=== PATIENT | male | born 1990 | race Caucasian/White ===

== ENCOUNTER 2018-05-10 02:57 | Emergency (ER) | payer BC, OTHER ==
[2018-05-10] MEDS ORDERED: KETOROLAC 30 MG/ML 1 ML VIAL IVP STA (03:07)
[2018-05-10] MEDS ORDERED: SODIUM CHLORIDE 0.9% 1,000 ML IV STA (03:07)
[2018-05-10] MEDS ORDERED: ONDANSETRON ODT 8 MG TAB.RAPDIS PO STA (03:07)
[2018-05-10] MEDS ORDERED: MORPHINE SULFATE 4 MG/ML SYRINGE IVP STA ×2 (03:24→04:07)
[2018-05-10 03:53] LABS: Basophils # (A) 0.1 k/uL (0-0.2); Basophils % (A) 1 %; Eosinophils # (A) 0.4 k/uL (0-0.7); Eosinophils % (A) 3 %; HCT 47.4 % (39.0-53.0); HGB 15.4 gm/dL (13.0-17.5); Lymphocytes # (A) 3.3 k/uL (1.0-4.8); Lymphocytes % (A) 31 %; MCH 29.3 pg (25.0-35.0); MCHC 32.6 g/dL (31.0-37.0); MCV 89.9 fL (80.0-100.0); Mean Platelet Volume 6.9; Monocytes # (A) 0.7 k/uL (0-1.0); Monocytes % (A) 6 %; Neutrophils # (A) 5.8 k/uL (1.3-7.7); Neutrophils % (A) 54 %; Platelet Count 306 k/uL (150-450); RBC 5.27 m/uL (4.30-5.90); RDW 12.8 % (11.5-15.5); WBC 10.7 k/uL (3.8-10.6)
[2018-05-10] MEDS ORDERED: ONDANSETRON 4 MG/2 ML VIAL IVP STA (04:08)
[2018-05-10 04:11] LABS: ALT 71 U/L (21-72); AST 36 U/L (17-59); Albumin 4.4 g/dL (3.5-5.0); Alkaline Phosphatase 98 U/L (38-126); Amylase 54 U/L (30-110); Anion Gap 12 mmol/L; Blood Urea Nitrogen 18 mg/dL (9-20); Calcium 9.7 mg/dL (8.4-10.2); Carbon Dioxide 25 mmol/L (22-30); Chloride 106 mmol/L (98-107); Glucose 132 mg/dL (74-99); Lipase 118 U/L (23-300); Potassium 4.3 mmol/L (3.5-5.1); Sodium 143 mmol/L (137-145); Total Bilirubin 0.7 mg/dL (0.2-1.3); Total Protein 7.7 g/dL (6.3-8.2)
--- NOTE | 2018-05-10 04:39 | CT ---
EXAMINATION TYPE: CT abdomen pelvis wo con DATE OF EXAM: 05/10/2018 COMPARISON: None HISTORY: abd pain CT DLP: 717.50 mGycm Automated exposure control for dose reduction was used. TECHNIQUE: Helical acquisition of images was performed from the lung bases through the pelvis. FINDINGS: Lung bases are clear. There is no pleural effusion. Heart size is normal. There is no pericardial eff usion. Stomach appears normal. Liver spleen pancreas gallbladder appear normal. Bile ducts are not dilated. There is no adrenal mass. Kidneys have normal size and contour. There are multiple bilateral renal ca lculi that measure up to 3 mm. There is mild left-sided hydronephrosis. There are 2 small calculi at the left ureteropelvic junction. Right side shows no hydronephrosis. Bony structures appear intact. There are small bone island in the right ilium. There is no retroperitoneal adenopathy. There is no mesenteric adenopathy or edema. There is no ascit es or free air. Bladder distends smoothly. There is no inguinal hernia. The appendix appears normal. I see no intestinal wall thickening. There are no dilated loops. There is small umbilical hernia that contains fat. IMPRESSION: MULTIPLE BILATERAL RENAL CALCULI. OBSTRUCTING CALCULI AT THE LEFT URETEROPELVIC JUNCTION WITH MILD LE FT-SIDED HYDRONEPHROSIS. NORMAL APPENDIX.
--- NOTE | 2018-05-10 05:02 | XR ---
EXAM: XR Abdomen, 1 View CLINICAL HISTORY: ITS.REASON XR Reason: Pain TECHNIQUE: Frontal supine view of the abdomen/pelvis. COMPARISON: No relevant prior studies available. IMPRESSION: No bowel obstruction. Copious amounts of stool in the right colon.
--- NOTE | 2018-05-10 05:10 | ED ---
General Adult HPI - General Chief complaint: Abdominal Pain Stated complaint: Back Pain Time Seen by Provider: 05/10/18 03:07 Source: patient Mode of arrival: ambulatory Limitations: no limitations - History of Present Illness Initial comments: 28-year-old male presents to the emergency department for a chief complaint of left flank pain 1 hour. Patient states he woke up to the pain. Patient states it is a sharp pain in his left flank shooting downward into the left abdomen. Patient states it is painful to urinate. Patient currently rates his pain at a 10 out of 10. Patient denies any previous history of kidney stones. Patient denies nausea or vomiting.Patient has no other complaints at this time including shortness of breath, chest pain, nausea or vomiting, headache, or visual changes. - Related Data Home Medications Medication Instructions Recorded Confirmed ALPRAZolam [Xanax] 1 mg PO DIRECTED PRN 05/10/18 05/10/18 Dextroamphetamine/Amphetamine 10 mg PO DAILY 05/10/18 05/10/18 [Adderall] Previous Rx's Medication Instructions Recorded HYDROcodone/APAP 5-325MG [[place] 1 tab PO Q6HR PRN #10 tab 05/10/18 5-325] Ibuprofen [Motrin] 600 mg PO Q6HR PRN #20 tab 05/10/18 Allergies Allergy/AdvReac Type Severity Reaction Status Date / Time No Known Allergies Allergy Verified 05/10/18 03:20 Review of Systems ROS Statement: Those systems with pertinent positive or pertinent negative responses have been documented in the HPI. ROS Other: All systems not noted in ROS Statement are negative. Past Medical History Past Medical History: No Reported History History of Any Multi-Drug Resistant Organisms: None Reported Past Surgical History: No Surgical Hx Reported Past Psychological History: No Psychological Hx Reported Smoking Status: Never smoker Past Alcohol Use History: None Reported Past Drug Use History: None Reported General Exam Limitations: no limitations General appearance: alert, in distress (Patient is in pain at presentation to the emergency department) Head exam: Present: atraumatic, normocephalic, normal inspection Eye exam: Present: normal appearance, PERRL, EOMI. Absent: scleral icterus, conjunctival injection, periorbital swelling ENT exam: Present: normal exam, mucous membranes moist Neck exam: Present: normal inspection, full ROM. Absent: tenderness, meningismus, lymphadenopathy Respiratory exam: Present: normal lung sounds bilaterally. Absent: respiratory distress, wheezes, rales, rhonchi, stridor Cardiovascular Exam: Present: regular rate, normal rhythm, normal heart sounds. Absent: systolic murmur, diastolic murmur, rubs, gallop, clicks GI/Abdominal exam: Present: soft, normal bowel sounds. Absent: distended, tenderness, guarding, rebound, rigid Back exam: Present: CVA tenderness (L) (Significant left CVA tenderness) Neurological exam: Present: alert, oriented X3, CN II-XII intact Course Vital Signs 05/10/18 05/10/18 03:00 05:58 Temperature 98.0 F 97.1 F L Pulse Rate 84 Respiratory 18 Rate Blood Pressure 138/86 O2 Sat by Pulse 96 Oximetry Medical Decision Making - Medical Decision Making 28-year-old male presents to the emergency determine for a chief complaint of left flank pain 1 hour. Pain is sharp and a 10 out of 10. On exam patient does have left CVA tenderness. CBC and CMP unremarkable. White blood cell count of 10.[address] abdomen and pelvis shows multiple bilateral renal calculi. Obstructing calculi at the left UPJ with mild left-sided hydronephrosis. Urine does not show any evidence of infection. On reevaluation after receiving Toradol and morphine patient is feeling much better. Discussed with patient whether he wanted to go home with pain meds or be admitted for pain. Patient states he would rather go home at this time. Patient will be discharged home with pain medication and urology follow-up. Patient aware to return to the emergency department if he has any worsening symptoms. - Lab Data Result diagrams: 05/10/18 03:21 05/10/18 03:21 Lab Results 05/10/18 05/10/18 05/10/18 Range/Units 03:21 03:21 05:00 WBC 10.7 H (3.8-10.6) k/uL RBC 5.27 (4.30-5.90) m/uL Hgb 15.4 (13.0-17.5) gm/dL Hct 47.4 (39.0-53.0) % MCV 89.9 (80.0-100.0) fL MCH 29.3 (25.0-35.0) pg MCHC 32.6 (31.0-37.0) g/dL RDW 12.8 (11.5-15.5) % Plt Count 306 (150-450) k/uL Neutrophils % 54 % Lymphocytes % 31 % Monocytes % 6 % Eosinophils % 3 % Basophils % 1 % Neutrophils # 5.8 (1.3-7.7) k/uL Lymphocytes # 3.3 (1.0-4.8) k/uL Monocytes # 0.7 (0-1.0) k/uL Eosinophils # 0.4 (0-0.7) k/uL Basophils # 0.1 (0-0.2) k/uL Sodium 143 (137-145) mmol/L Potassium 4.3 (3.5-5.1) mmol/L Chloride 106 (98-107) mmol/L Carbon Dioxide 25 (22-30) mmol/L Anion Gap 12 mmol/L BUN 18 (9-20) mg/dL Creatinine 1.05 (0.66-1.25) mg/dL Est GFR (CKD-EPI)AfAm >90 (>60 ml/min/1.73 sqM) Est GFR (CKD-EPI)NonAf >90 (>60 ml/min/1.73 sqM) Glucose 132 H (74-99) mg/dL Calcium 9.7 (8.4-10.2) mg/dL Total Bilirubin 0.7 (0.2-1.3) mg/dL AST 36 (17-59) U/L ALT 71 (21-72) U/L Alkaline Phosphatase 98 (38-126) U/L Total Protein 7.7 (6.3-8.2) g/dL Albumin 4.4 (3.5-5.0) g/dL Amylase 54 (30-110) U/L Lipase 118 (23-300) U/L Urine Color Yellow Urine Appearance Clear (Clear) Urine pH 6.0 (5.0-8.0) Ur Specific [place] 1.025 (1.001-1.035) Urine Protein 1+ H (Negative) Urine Glucose (UA) Negative (Negative) Urine Ketones Negative (Negative) Urine Blood Large H (Negative) Urine Nitrite Negative (Negative) Urine Bilirubin Negative (Negative) Urine Urobilinogen <2.0 (<2.0) mg/dL Ur Leukocyte Esterase Trace H (Negative) Urine RBC >182 H (0-5) /hpf Urine WBC 6 H (0-5) /hpf Ur Squamous Epith Cells <1 (0-4) /hpf Urine Mucus Few H (None) /hpf Disposition Clinical Impression: Kidney stone on left side Disposition: HOME SELF-CARE Condition: Good Instructions: Kidney Stones (ED) Additional Instructions: Please follow up with urology in 1-2 days. Take pain medications as directed. Return to the emergency department if you have any worsening symptoms or fevers. Prescriptions: HYDROcodone/APAP 5-325MG [[place] 5-325] 1 tab PO Q6HR PRN #10 tab PRN Reason: Pain Ibuprofen [Motrin] 600 mg PO Q6HR PRN #20 tab PRN Reason: Pain Is patient prescribed a controlled substance at d/c from ED?: No Referrals: Parminder Shaw DO [Primary Care Provider] - 1-2 days Travis Osorio MD [STAFF PHYSICIAN] - 1-2 days Time of Disposition: 05:09
[2018-05-10 05:31] LABS: Appearance,Urine Clear (Clear); Bilirubin,Urine Negative (Negative); Blood,Urine Large (Negative); Color,Urine Yellow; Glucose,Urine (UA) Negative (Negative); Ketones,Urine Negative (Negative); Leukocyte Esterase,Urine Trace (Negative); Mucus,Urine Few /hpf; Nitrite,Urine Negative (Negative); Protein,Urine 1+ (Negative); RBC,Urine >182 /hpf (0-5); Specific Gravity,Urine 1.025 (1.001-1.035); Squamous Epithelial Cell,Urine <1 /hpf (0-4); Urobilinogen,Urine <2.0 mg/dL (<2.0); WBC,Urine 6 /hpf (0-5)
[2018-05-10 06:00] VITALS: BP 138/86; PULSE 84; RESP 18; TEMP 97.1
== END 2018-05-10 06:00 | disposition home or self-care (01) ==
LOC: EC 02:57
DX: N13.2 Hydronephrosis with renal and ureteral calculous obstruction (principal); Z79.899 Other long term (current) drug therapy
CPT/HCPCS: 36415; 80053; 82150; 83690; 85025; 81001; 87086; 74018; 74176; 99284; 96374; 96375 ×2; 96376 ×2; 96361 ×2; J2270; J2405; J1885

== ENCOUNTER 2019-06-23 04:30 | Emergency (ER) | payer BC ==
[2019-06-23 04:39] VITALS: TEMP 97.5
[2019-06-23] MEDS ORDERED: MORPHINE SULFATE 4 MG/ML SYRINGE IV STA (04:58)
[2019-06-23] MEDS ORDERED: KETOROLAC 30 MG/ML 1 ML VIAL IVP STA (04:58)
[2019-06-23] MEDS ORDERED: SODIUM CHLORIDE 0.9% 1,000 ML IV STA (04:58)
[2019-06-23] MEDS ORDERED: HYDROmorphone 1 MG/ML 1 ML SYRINGE IVP STA (05:19)
--- NOTE | 2019-06-23 05:21 | ED ---
General Adult HPI - General Chief complaint: Abdominal Pain Stated complaint: Poss kidney stones Time Seen by Provider: 06/23/19 04:41 Source: patient, RN notes reviewed, old records reviewed Mode of arrival: ambulatory Limitations: no limitations - History of Present Illness Initial comments: 29-year-old male presenting with sudden onset left-sided flank pain radiating to his abdomen. Patient has previous history of kidney stones and pain is similar to previous episodes of renal colic. He's had some nausea and vomiting as well. Patient is in moderate distress history somewhat limited secondary to presentation. - Related Data Home Medications Medication Instructions Recorded Confirmed ALPRAZolam [Xanax] 1 mg PO DIRECTED PRN 05/10/18 05/10/18 Dextroamphetamine/Amphetamine 10 mg PO DAILY 05/10/18 05/10/18 [Adderall] Previous Rx's Medication Instructions Recorded HYDROcodone/APAP 5-325MG [[place] 1 tab PO Q6HR PRN #10 tab 05/10/18 5-325] Ibuprofen [Motrin] 600 mg PO Q6HR PRN #20 tab 05/10/18 HYDROcodone/APAP 5-325MG [[place] 1 tab PO Q6HR PRN #12 tab 06/23/19 5-325] Ibuprofen [Motrin] 600 mg PO Q8HR PRN #24 tab 06/23/19 Ondansetron Odt [Zofran Odt] 4 mg PO Q8HR PRN #10 tab 06/23/19 Tamsulosin [Flomax] 0.4 mg PO DAILY #30 cap 06/23/19 Allergies Allergy/AdvReac Type Severity Reaction Status Date / Time No Known Allergies Allergy Verified 06/23/19 04:39 Review of Systems ROS Statement: Those systems with pertinent positive or pertinent negative responses have been documented in the HPI. ROS Other: All systems not noted in ROS Statement are negative. Past Medical History Past Medical History: No Reported History History of Any Multi-Drug Resistant Organisms: None Reported Past Surgical History: No Surgical Hx Reported Past Psychological History: No Psychological Hx Reported Smoking Status: Never smoker Past Alcohol Use History: None Reported Past Drug Use History: None Reported General Exam Limitations: no limitations General appearance: alert, in distress Head exam: Present: atraumatic, normocephalic Eye exam: Present: normal appearance, PERRL ENT exam: Present: normal exam Neck exam: Present: normal inspection. Absent: tenderness, meningismus Respiratory exam: Present: normal lung sounds bilaterally. Absent: respiratory distress, wheezes Cardiovascular Exam: Present: regular rate, normal rhythm GI/Abdominal exam: Present: soft. Absent: distended, tenderness, guarding Extremities exam: Present: normal inspection, normal capillary refill. Absent: calf tenderness Back exam: Present: normal inspection, CVA tenderness (L) Neurological exam: Present: alert, oriented X3, CN II-XII intact. Absent: motor sensory deficit Psychiatric exam: Present: normal affect, normal mood Skin exam: Present: warm, diaphoretic Course Vital Signs 06/23/19 04:38 Temperature 97.5 F L Pulse Rate 97 Respiratory 18 Rate Blood Pressure 90/43 O2 Sat by Pulse 94 L Oximetry Medical Decision Making - Medical Decision Making 29-year-old male with severe left flank pain, sudden onset. History and exam consistent with renal colic. X-rays obtained, negative for stone, no obstruction or intraperitoneal free air. CT is performed in the emergency department which shows left-sided hydronephrosis perinephric edema and stone at the left UVJ measuring 6 mm. Urinalysis consistent with kidney stone with 70 red cells. Creatinine is 1.38 and patient has mild leukocytosis 14.1. He receives several doses of IV pain medication emergency prompt. On reevaluation is resting comfortably feeling much better. He has some persistent pain but overall feeling much better. Did discuss outpatient versus inpatient management. Patient would like to attempt pain control at home. He will strain his urine and will call urology for close follow-up. Case is discussed with urology on-call Dr. Dominguez. - Lab Data Result diagrams: 06/23/19 05:03 06/23/19 05:03 Lab Results 06/23/19 06/23/19 06/23/19 Range/Units 05:03 05:03 06:28 WBC 14.1 H (3.8-10.6) k/uL RBC 4.99 (4.30-5.90) m/uL Hgb 14.6 (13.0-17.5) gm/dL Hct 45.3 (39.0-53.0) % MCV 90.8 (80.0-100.0) fL MCH 29.3 (25.0-35.0) pg MCHC 32.3 (31.0-37.0) g/dL RDW 12.7 (11.5-15.5) % Plt Count 309 (150-450) k/uL Neutrophils % 86 % Lymphocytes % 8 % Monocytes % 4 % Eosinophils % 0 % Basophils % 0 % Neutrophils # 12.0 H (1.3-7.7) k/uL Lymphocytes # 1.2 (1.0-4.8) k/uL Monocytes # 0.6 (0-1.0) k/uL Eosinophils # 0.0 (0-0.7) k/uL Basophils # 0.0 (0-0.2) k/uL Sodium 140 (137-145) mmol/L Potassium 4.1 (3.5-5.1) mmol/L Chloride 105 (98-107) mmol/L Carbon Dioxide 23 (22-30) mmol/L Anion Gap 12 mmol/L BUN 18 (9-20) mg/dL Creatinine 1.38 H (0.66-1.25) mg/dL Est GFR (CKD-EPI)AfAm 80 (>60 ml/min/1.73 sqM) Est GFR (CKD-EPI)NonAf 69 (>60 ml/min/1.73 sqM) Glucose 113 H (74-99) mg/dL Calcium 10.0 (8.4-10.2) mg/dL Total Bilirubin 0.5 (0.2-1.3) mg/dL AST 25 (17-59) U/L ALT 42 (21-72) U/L Alkaline Phosphatase 91 (38-126) U/L Total Protein 8.0 (6.3-8.2) g/dL Albumin 4.7 (3.5-5.0) g/dL Urine Color Yellow Urine Appearance Clear (Clear) Urine pH 5.5 (5.0-8.0) Ur Specific [place] 1.035 (1.001-1.035) Urine Protein 1+ H (Negative) Urine Glucose (UA) Negative (Negative) Urine Ketones Negative (Negative) Urine Blood Small H (Negative) Urine Nitrite Negative (Negative) Urine Bilirubin Negative (Negative) Urine Urobilinogen <2.0 (<2.0) mg/dL Ur Leukocyte Esterase Negative (Negative) Urine RBC 70 H (0-5) /hpf Urine WBC 3 (0-5) /hpf Ur Squamous Epith Cells 1 (0-4) /hpf Urine Mucus Many H (None) /hpf Disposition Clinical Impression: Calculus of kidney Disposition: HOME SELF-CARE Condition: Fair Instructions (If sedation given, give patient instructions): Renal Colic (ED), Kidney Stones (ED) Prescriptions: Tamsulosin [Flomax] 0.4 mg PO DAILY #30 cap Ibuprofen [Motrin] 600 mg PO Q8HR PRN #24 tab PRN Reason: Pain HYDROcodone/APAP 5-325MG [[place] 5-325] 1 tab PO Q6HR PRN #12 tab PRN Reason: Pain Ondansetron Odt [Zofran Odt] 4 mg PO Q8HR PRN #10 tab PRN Reason: Vomiting Is patient prescribed a controlled substance at d/c from ED?: No Referrals: Parminder Shaw DO [Primary Care Provider] - 1-2 days Saúl Dominguez MD [STAFF PHYSICIAN] - 1-2 days Time of Disposition: 07:03
--- NOTE | 2019-06-23 05:24 | XR ---
Abdomen single view. History flank pain abdominal pain. Comparison 05/10/2018. FINDINGS: 2 views upright were obtained. Bowel gas pattern is normal. There is no sign of intestinal obstructio n or pneumoperitoneum. Fecal pattern is normal. Lung bases are clear. There are no pathologic calcifi cations. IMPRESSION: Nonacute abdomen. No change.
[2019-06-23 05:32] LABS: Basophils % (A) 0 %; Eosinophils % (A) 0 %; HCT 45.3 % (39.0-53.0); HGB 14.6 gm/dL (13.0-17.5); Lymphocytes # (A) 1.2 k/uL (1.0-4.8); Lymphocytes % (A) 8 %; MCH 29.3 pg (25.0-35.0); MCHC 32.3 g/dL (31.0-37.0); MCV 90.8 fL (80.0-100.0); Mean Platelet Volume 6.9; Monocytes # (A) 0.6 k/uL (0-1.0); Monocytes % (A) 4 %; Neutrophils % (A) 86 %; Platelet Count 309 k/uL (150-450); RBC 4.99 m/uL (4.30-5.90); RDW 12.7 % (11.5-15.5); WBC 14.1 k/uL (3.8-10.6)
[2019-06-23 05:52] LABS: Albumin 4.7 g/dL (3.5-5.0); Potassium 4.1 mmol/L (3.5-5.1); Total Bilirubin 0.5 mg/dL (0.2-1.3)
[2019-06-23] MEDS ORDERED: ONDANSETRON 4 MG/2 ML VIAL IVP STA (05:57)
--- NOTE | 2019-06-23 06:40 | CT ---
EXAMINATION TYPE: CT abdomen pelvis wo con DATE OF EXAM: 06/23/2019 COMPARISON: 05/10/2018 HISTORY: Lt flank pain CT DLP: 806.4 mGycm Automated exposure control for dose reduction was used. TECHNIQUE: Helical acquisition of images was performed from the lung bases through the pelvis. FINDINGS: The lung bases are clear of infiltrate. There is no pleural effusion. Heart size is normal. There is no pericardial effusion. Liver spleen pancreas gallbladder appear normal. Bile ducts are not dilated. Stomach is intact. There is no adrenal mass. There are bilateral multiple renal calculi up to 5 mm. There is left-sided hydronephrosis and hydroureter. There is left side perinephric edema. There is 6 mm calculus at the l eft ureterovesical junction. Bladder distends smoothly. There is no inguinal hernia. There is left side periureteral edema. The appendix appears normal. There is no mesenteric edema. The re is no ascites or free air. There is no sign of a bowel obstruction. Lumbar spine is intact. Bony p deepika is intact. IMPRESSION: THERE IS LEFT-SIDED HYDRONEPHROSIS AND HYDROURETER WITH OBSTRUCTING CALCULUS DISTAL LEFT URETER NEAR THE BLADDER. MULTIPLE BILATERAL RENAL CALCULI.
[2019-06-23 06:42] LABS: Appearance,Urine Clear (Clear); Bilirubin,Urine Negative (Negative); Blood,Urine Small (Negative); Color,Urine Yellow; Glucose,Urine (UA) Negative (Negative); Ketones,Urine Negative (Negative); Leukocyte Esterase,Urine Negative (Negative); Mucus,Urine Many /hpf; Nitrite,Urine Negative (Negative); PH, Urine 5.5 (5.0-8.0); Protein,Urine 1+ (Negative); RBC,Urine 70 /hpf (0-5); Specific Gravity,Urine 1.035 (1.001-1.035); Squamous Epithelial Cell,Urine 1 /hpf (0-4); Urobilinogen,Urine <2.0 mg/dL (<2.0); WBC,Urine 3 /hpf (0-5)
[2019-06-23 06:59] VITALS: BP 143/90; PULSE 75; RESP 17
== END 2019-06-23 07:10 | disposition home or self-care (01) ==
LOC: EC 04:30
DX: N13.2 Hydronephrosis with renal and ureteral calculous obstruction (principal); D72.829 Elevated white blood cell count, unspecified; R61 Generalized hyperhidrosis
CPT/HCPCS: 36415; 80053; 85025; 81001; 74018; 74176; 99285; 96374; 96375 ×3; 96361 ×2; J2270; J2405; J1885; J1170

== ENCOUNTER → 2019-08-18 | Outpatient (CLI) | payer BC ==
--- NOTE | 2019-08-18 16:28 | XR ---
KUB HISTORY: Calculus of ureter Frontal KUB on 2 images correlated prior KUB 06/23/2019, CT 06/23/2019 Lung bases are clear. There is no evident bowel obstruction or pneumoperitoneum. At the level of the distal ureter on the left there is an oval calcification measuring approximately 6 mm. Bone mineraliz ation is normal. IMPRESSION: Correlate for possible distal left ureteral calculus.
== END | disposition home or self-care (01) ==
LOC: RADXRMAIN 16:08
PROVIDERS: ATTEND Urology
DX: N20.1 Calculus of ureter (principal)
CPT/HCPCS: 74018

== ENCOUNTER → 2021-12-22 | Outpatient (CLI) | payer BC ==
[2021-12-22 18:56] LABS: HCT 50.4 % (39.6-50.0); HGB 16.1 g/dL (13.0-17.0); MCH 29.2 pg (27.0-32.0); MCHC 31.9 g/dL (32.0-37.0); MCV 91.3 fL (80.0-97.0); Mean Platelet Volume 10.2 fL (9.5-12.2); NRBC Per 100 WBC 0 /100 WBCS (0.0-0.0); Platelet Count 317 X 10*3/uL (140-440); RBC 5.52 X 10*6/uL (4.40-5.60); RDW 12.4 % (11.5-14.5); WBC 7.24 X 10*3/uL (4.50-10.00)
[2021-12-22 19:12] LABS: Follicle Stimulating Hormone 3.3 mIU/mL; Prolactin 12.1 ng/mL (2.100-17.700)
[2021-12-22 19:20] LABS: African American GFR (CKD) 115.7 (60.0-200.0); Albumin 4.9 g/dL (3.8-4.9); Albumin/Globulin Ratio 1.53 (1.60-3.17); Anion Gap 10.4 mmol/L (10.00-18.00); BUN/Creat Ratio 11.7 Ratio (12.00-20.00); Blood Urea Nitrogen 11.7 mg/dL (9.0-27.0); Calcium 9.9 mg/dL (8.7-10.3); Carbon Dioxide 25.6 mmol/L (20.0-27.5); Globulin 3.2 g/dL (1.6-3.3); Non-African American GFR(CKD) 99.8 (60.0-200.0); Potassium 4.2 mmol/L (3.5-5.5); T4, Free (Free Thyroxine) 1.37 ng/dL (0.800-1.800); Total Bilirubin 0.3 mg/dL (0.30-1.20); Total Protein 8.1 g/dL (6.2-8.2)
[2021-12-22 21:54] LABS: Thyroid Peroxidase Antibodies <9.0 U/mL (0.0-33.0)
== END | disposition home or self-care (01) ==
LOC: LABWHC1 12:21
PROVIDERS: ATTEND Internal Medicine Endocrinology, Diabetes & Metabolism
DX: N20.0 Calculus of kidney (principal); R53.83 Other fatigue; R35.81 Nocturnal polyuria
CPT/HCPCS: 36415; 80053; 82024; 82533; 82607; 83001; 83002; 83036; 83930; 83935; 83970; 84146; 84403; 84439; 84443; 84481; 85027; 86376

== ENCOUNTER 2022-01-22 02:20 | Emergency (ER) | payer BC ==
[2022-01-22] MEDS ORDERED: SODIUM CHLORIDE 0.9% 1,000 ML IV STA (02:28)
[2022-01-22] MEDS ORDERED: MORPHINE SULFATE 4 MG/ML SYRINGE IV STA ×2 (02:33→03:45)
[2022-01-22] MEDS ORDERED: KETOROLAC 15 MG/ML 1 ML VIAL IVP STA (02:33)
[2022-01-22] MEDS ORDERED: ONDANSETRON 4 MG/2 ML VIAL IVP STA (02:33)
[2022-01-22] MEDS ORDERED: TAMSULOSIN 0.4 MG CAP.ER.24H PO STA (02:34)
--- NOTE | 2022-01-22 02:37 | ED ---
General Adult HPI - General Source: patient, RN notes reviewed Mode of arrival: ambulatory Limitations: no limitations <Mani Shepard - Last Filed: 01/22/22 04:18> <Carlin Cordon - Last Filed: 01/22/22 05:09> - General Chief complaint: Back Pain/Injury Stated complaint: Kidney stone Time Seen by Provider: 01/22/22 02:27 - History of Present Illness Initial comments: This is a pleasant 31-year-old male with a history of kidney stones. He presents to the emergency department complaining of sharp right flank pain which started suddenly today. He states he had a spontaneous yesterday. However that went away and came back with a vengeance tonight. He denies any nausea or vomiting. No fever or chills. No known hematuria. Pain does radiate around the right flank. Patient states he's had about 4 kidney stones previously and the last time he had Lithotripsy. No headache, no fever or chills, no changes in vision or hearing, no sore throat or difficulty with speech, no neck pain, no chest pain or shortness of breath, no nausea or vomiting, no changes in urination or bowel movements, no numbness or tingling, no extremity pain, no skin rashes or lesions. (Mani Shepard) - Related Data Home Medications Medication Instructions Recorded Confirmed ALPRAZolam [Xanax] 1 mg PO DIRECTED PRN 05/10/18 05/10/18 Dextroamphetamine/Amphetamine 10 mg PO DAILY 05/10/18 05/10/18 [Adderall] Previous Rx's Medication Instructions Recorded HYDROcodone/APAP 5-325MG [[place] 1 tab PO Q6HR PRN #10 tab 05/10/18 5-325] Ibuprofen [Motrin] 600 mg PO Q6HR PRN #20 tab 05/10/18 HYDROcodone/APAP 5-325MG [[place] 1 tab PO Q6HR PRN #12 tab 06/23/19 5-325] Ibuprofen [Motrin] 600 mg PO Q8HR PRN #24 tab 06/23/19 Ondansetron Odt [Zofran Odt] 4 mg PO Q8HR PRN #10 tab 06/23/19 Tamsulosin [Flomax] 0.4 mg PO DAILY #30 cap 06/23/19 HYDROcodone/APAP 5-325MG [[place] 1 tab PO Q6HR PRN #12 tab 01/22/22 5-325] Tamsulosin [Flomax] 0.4 mg PO DAILY #7 cap 01/22/22 Allergies Allergy/AdvReac Type Severity Reaction Status Date / Time No Known Allergies Allergy Verified 01/22/22 02:24 Review of Systems ROS Other: All systems not noted in ROS Statement are negative. <Mani Shepard - Last Filed: 01/22/22 04:18> ROS Other: All systems not noted in ROS Statement are negative. <NerisCarlin - Last Filed: 01/22/22 05:09> ROS Statement: Those systems with pertinent positive or pertinent negative responses have been documented in the HPI. Past Medical History Past Medical History: No Reported History Additional Past Medical History / Comment(s): kindey stones History of Any Multi-Drug Resistant Organisms: None Reported Past Surgical History: No Surgical Hx Reported Past Psychological History: No Psychological Hx Reported Smoking Status: Never smoker Past Alcohol Use History: None Reported Past Drug Use History: None Reported <Mani Shepard - Last Filed: 01/22/22 04:18> General Exam Limitations: no limitations General appearance: in distress (Mild) Head exam: Present: atraumatic, normocephalic, normal inspection Eye exam: Present: normal appearance, PERRL, EOMI. Absent: scleral icterus, conjunctival injection, periorbital swelling ENT exam: Present: normal exam, mucous membranes moist Neck exam: Present: normal inspection, full ROM. Absent: tenderness, meningismus, lymphadenopathy Respiratory exam: Present: normal lung sounds bilaterally. Absent: respiratory distress, wheezes, rales, rhonchi, stridor Cardiovascular Exam: Present: regular rate, normal rhythm, normal heart sounds. Absent: systolic murmur, diastolic murmur, rubs, gallop, clicks GI/Abdominal exam: Present: soft, normal bowel sounds. Absent: distended, tende rness, guarding, rebound, rigid Extremities exam: Present: normal inspection, full ROM, normal capillary refill. Absent: tenderness, pedal edema, joint swelling, calf tenderness Back exam: Present: normal inspection, full ROM Neurological exam: Present: alert, oriented X3, CN II-XII intact Psychiatric exam: Present: normal affect, normal mood Skin exam: Present: warm, dry, intact, normal color. Absent: rash, cyanosis, diaphoretic, erythema, urticaria, vesicles <Mani Shepard - Last Filed: 01/22/22 04:18> - General Exam Comments Initial Comments: Does not appear to be ill or toxic. Vital signs reviewed (Mani Shepard) Course Vital Signs 01/22/22 02:22 Temperature 97.9 F Pulse Rate 90 Respiratory 18 Rate Blood Pressure 126/86 O2 Sat by Pulse 96 Oximetry Medical Decision Making - Lab Data Result diagrams: 01/22/22 02:43 01/22/22 02:43 <Mani Shepard - Last Filed: 01/22/22 04:18> - Lab Data Result diagrams: 01/22/22 02:43 01/22/22 02:43 <Carlin Cordon - Last Filed: 01/22/22 05:09> - Medical Decision Making 31-year-old with CT evidence of right-sided obstructing renal calculus, measuring 3 mm with associated hydronephrosis and hydroureter. Patient reevaluated, resting comfortably. Laboratory testing is unremarkable. He is given urology follow-up, he will strain his urine, he is prescribed Flomax and [place]. (Carlin Cordon) - Lab Data Lab Results 01/22/22 01/22/22 01/22/22 Range/Units 02:43 02:43 02:52 WBC 9.4 (3.8-10.6) k/uL RBC 5.17 (4.30-5.90) m/uL Hgb 15.4 (13.0-17.5) gm/dL Hct 47.5 (39.0-53.0) % MCV 91.7 (80.0-100.0) fL MCH 29.8 (25.0-35.0) pg MCHC 32.4 (31.0-37.0) g/dL RDW 12.4 (11.5-15.5) % Plt Count 290 (150-450) k/uL MPV 7.4 Neutrophils % 61 % Lymphocytes % 27 % Monocytes % 6 % Eosinophils % 2 % Basophils % 1 % Neutrophils # 5.7 (1.3-7.7) k/uL Lymphocytes # 2.5 (1.0-4.8) k/uL Monocytes # 0.6 (0-1.0) k/uL Eosinophils # 0.2 (0-0.7) k/uL Basophils # 0.1 (0-0.2) k/uL Sodium 141 (137-145) mmol/L Potassium 4.0 (3.5-5.1) mmol/L Chloride 108 H (98-107) mmol/L Carbon Dioxide 24 (22-30) mmol/L Anion Gap 9 mmol/L BUN 15 (9-20) mg/dL Creatinine 0.99 (0.66-1.25) mg/dL Est GFR (CKD-EPI)AfAm >90 (>60 ml/min/1.73 sqM) Est GFR (CKD-EPI)NonAf >90 (>60 ml/min/1.73 sqM) Glucose 101 H (74-99) mg/dL Calcium 9.2 (8.4-10.2) mg/dL Total Bilirubin 0.2 (0.2-1.3) mg/dL AST 26 (17-59) U/L ALT 36 (4-49) U/L Alkaline Phosphatase 82 (38-126) U/L Total Protein 7.8 (6.3-8.2) g/dL Albumin 4.8 (3.5-5.0) g/dL Lipase 187 (23-300) U/L Urine Color Yellow Urine Appearance Clear (Clear) Urine pH 6.0 (5.0-8.0) Ur Specific [place] 1.030 (1.001-1.035) Urine Protein 1+ H (Negative) Urine Glucose (UA) Negative (Negative) Urine Ketones Negative (Negative) Urine Blood Large H (Negative) Urine Nitrite Negative (Negative) Urine Bilirubin Negative (Negative) Urine Urobilinogen 2.0 (<2.0) mg/dL Ur Leukocyte Esterase Negative (Negative) Urine RBC >182 H (0-5) /hpf Urine WBC 3 (0-5) /hpf Ur Squamous Epith Cells <1 (0-4) /hpf Urine Mucus Many H (None) /hpf Disposition Is patient prescribed a controlled substance at d/c from ED?: No <Mani Shepard - Last Filed: 01/22/22 04:18> Time of Disposition: 05:08 <Carlin Cordon - Last Filed: 01/22/22 05:09> Clinical Impression: Kidney stone on right side, Renal colic on right side, Hydronephrosis Disposition: HOME SELF-CARE Condition: Good Instructions (If sedation given, give patient instructions): Kidney Stones (ED), How to Strain Your Urine (ED) Additional Instructions: Follow-up with your regular physician as directed. Return to the ER immediately if any symptoms worsen, new symptoms arise, or any other problems develop. Drink plenty of fluids Make an appointment with the urologist as discussed Prescriptions: Tamsulosin [Flomax] 0.4 mg PO DAILY #7 cap HYDROcodone/APAP 5-325MG [[place] 5-325] 1 tab PO Q6HR PRN #12 tab PRN Reason: Pain Referrals: Conrad Rodriguez MD [STAFF PHYSICIAN] - 01/25/22
[2022-01-22 02:59] LABS: Basophils # (A) 0.1 k/uL (0-0.2); Basophils % (A) 1 %; Eosinophils # (A) 0.2 k/uL (0-0.7); Eosinophils % (A) 2 %; HCT 47.5 % (39.0-53.0); HGB 15.4 gm/dL (13.0-17.5); Lymphocytes # (A) 2.5 k/uL (1.0-4.8); Lymphocytes % (A) 27 %; MCH 29.8 pg (25.0-35.0); MCHC 32.4 g/dL (31.0-37.0); MCV 91.7 fL (80.0-100.0); Mean Platelet Volume 7.4; Monocytes # (A) 0.6 k/uL (0-1.0); Monocytes % (A) 6 %; Neutrophils # (A) 5.7 k/uL (1.3-7.7); Neutrophils % (A) 61 %; Platelet Count 290 k/uL (150-450); RBC 5.17 m/uL (4.30-5.90); RDW 12.4 % (11.5-15.5); WBC 9.4 k/uL (3.8-10.6)
[2022-01-22 03:05] LABS: ALT 36 U/L (4-49); AST 26 U/L (17-59); African American GFR (CKD) >90 (>60 ml/min/1.73 sqM); Albumin 4.8 g/dL (3.5-5.0); Alkaline Phosphatase 82 U/L (38-126); Anion Gap 9 mmol/L; Blood Urea Nitrogen 15 mg/dL (9-20); Calcium 9.2 mg/dL (8.4-10.2); Carbon Dioxide 24 mmol/L (22-30); Chloride 108 mmol/L (98-107); Glucose 101 mg/dL (74-99); Lipase 187 U/L (23-300); Non-African American GFR(CKD) >90 (>60 ml/min/1.73 sqM); Sodium 141 mmol/L (137-145); Total Bilirubin 0.2 mg/dL (0.2-1.3); Total Protein 7.8 g/dL (6.3-8.2)
[2022-01-22 03:44] LABS: Appearance,Urine Clear (Clear); Bilirubin,Urine Negative (Negative); Blood,Urine Large (Negative); Color,Urine Yellow; Glucose,Urine (UA) Negative (Negative); Ketones,Urine Negative (Negative); Leukocyte Esterase,Urine Negative (Negative); Mucus,Urine Many /hpf; Nitrite,Urine Negative (Negative); Protein,Urine 1+ (Negative); RBC,Urine >182 /hpf (0-5); Squamous Epithelial Cell,Urine <1 /hpf (0-4); WBC,Urine 3 /hpf (0-5)
--- NOTE | 2022-01-22 05:01 | CT ---
EXAM: CT Abdomen and Pelvis Without Intravenous Contrast CLINICAL HISTORY: Right flank pain TECHNIQUE: Axial computed tomography images of the abdomen and pelvis without intravenous contrast. CTDI is 13.07 mGy and DLP is 784.5 mGy-cm. This CT exam was performed using one or more of the following dose reduction techniques: automated exposure control, adjustment of the mA and/or kV according to patient size, and/or use of iterative reconstruction technique. Coronal and sagittal reformatted images were created and reviewed. 451 images COMPARISON: 06/23/19 FINDINGS: Lung bases: Unremarkable. No mass. No consolidation. ABDOMEN: Liver: Unremarkable. Gallbladder and bile ducts: Unremarkable. No calcified stones. No ductal dilation. Pancreas: Unremarkable. No ductal dilation. Spleen: Unremarkable. No splenomegaly. Adrenals: Unremarkable. No mass. Kidneys and ureters: Nonobstructing bilateral renal stones measuring up to 5 mm. 3 mm obstructing stone in proximal right ureter, about 8 cm from the pelvis, causes mild hydroureter and hydronephrosis. Stomach and bowel: Unremarkable. No obstruction. No mucosal thickening. PELVIS: Appendix: Normal appendix. Bladder: Unremarkable. No stones. Reproductive: Unremarkable as visualized. ABDOMEN and PELVIS: Intraperitoneal space: Unremarkable. No free air. No significant fluid collection. Bones/joints: No acute fracture. No dislocation. Soft tissues: Unremarkable. Vasculature: Unremarkable. No abdominal aortic aneurysm. Lymph nodes: Unremarkable. No enlarged lymph nodes. IMPRESSION: 3 mm obstructing stone in proximal right ureter, about 8 cm from the pelvis, causes mild hydroureter and hydronephrosis. Nonobstructing bilateral renal stones
[2022-01-22 05:14] VITALS: BP 145/84; PULSE 79; RESP 22; TEMP 97
== END 2022-01-22 05:14 | disposition home or self-care (01) ==
LOC: EC 02:20
DX: N13.2 Hydronephrosis with renal and ureteral calculous obstruction (principal)
CPT/HCPCS: 36415; 80053; 83690; 85025; 81001; 74176; 99284; 96374; 96375; 96376; 96361; J2270; J2405; J1885

== ENCOUNTER → 2022-01-30 | Outpatient (CLI) | payer BC ==
--- NOTE | 2022-01-30 12:17 | XR ---
EXAMINATION TYPE: XR KUB DATE OF EXAM: 01/30/2022 COMPARISON: 08/18/2019, CT scan 01/22/2022 HISTORY: Pain TECHNIQUE: One view abdominal series FINDINGS: The osseous structures are intact. The bowel gas pattern is nonspecific. Lung bases are clear. Left kidney: There are three punctate 1 to 2 mm left renal calculi in the lower pole. Right kidney: Bowel content obscures the outline with no definite suspicious calcifications. However, there appears to be a 2 to 3 mm calcification overlying the right transverse process of L3 similar i n position to prior CT scan. Lower pole right renal calculi by CT scan appears obscured by bowel cont ent. IMPRESSION: 1. There is a 3 mm calcification overlying the right transverse process of L3 similar in location to the prior scan compatible with ureteral calculus. 2. Nephrolithiasis..
== END | disposition home or self-care (01) ==
LOC: RADXRMAIN 11:59
PROVIDERS: ATTEND Urology
DX: N20.1 Calculus of ureter (principal)
CPT/HCPCS: 74018

== ENCOUNTER → 2022-02-09 | Outpatient (CLI) | payer BC ==
--- NOTE | 2022-02-10 07:06 | MR ---
EXAMINATION TYPE: MR pituitary wo/w con DATE OF EXAM: 02/09/2022 COMPARISON: NONE HISTORY: Testicular hypofunction. TECHNIQUE: Multiplanar, multisequence images of the brain and brainstem is performed without and with IV contras t, utilizing 11 mL intravenous Gadavist . Pituitary gland protocol. FINDINGS: Pituitary gland normal in size within sella turcica. Postcontrast images show enhancing pit uitary stalk in the midline. No definitive areas of nonenhancement identified to suggest microadenoma . Optic chiasm is not effaced. Suprasellar cistern is maintained. The adjacent carotid siphons are in tact. No gross hydrocephalus. Craniocervical junction is maintained. IMPRESSION: No MRI evidence for pituitary microadenoma or macroadenoma.
== END | disposition home or self-care (01) ==
LOC: RADMRIMAIN 19:14
PROVIDERS: ATTEND Internal Medicine Endocrinology, Diabetes & Metabolism
DX: E29.1 Testicular hypofunction (principal)
CPT/HCPCS: 70553; A9585

== ENCOUNTER 2022-02-27 19:54 | Emergency (ER) | payer BC ==
[2022-02-27 20:04] VITALS: BP 157/80; PULSE 72; RESP 18; TEMP 98.1
[2022-02-27] MEDS ORDERED: DIPH,PERTUS(ACELL)TETVAC-LF 0.5 ML VIAL IM ONE (20:07)
[2022-02-27] MEDS ORDERED: RABIES VACCINE (PCEC) 2.5 UNIT KIT IM ONE (20:07)
--- NOTE | 2022-02-27 20:08 | ED ---
Animal Bite HPI - General Chief Complaint: Animal Bite Stated Complaint: Wants rabies shot Time Seen by Provider: 02/27/22 20:06 Source: patient Mode of arrival: ambulatory Limitations: no limitations - History of Present Illness Initial Comments: Patient is a 32-year-old male presents the emergency room with complaints of exposure to a raccoon with concern of rabies. He reports that the vacuum was in his tractor any attempted to have the raccoon leave his tractor when the animal bit him through multiple layers of clothing and scratched his arm. He has a small scratch/puncture-like lesion to his left upper arm and right upper arm. Neither has significant skin tissue breakage. Both appear to be from the tip of the tooth versus a tip of a clot. He reports that during the attack he shot the animal and he did have blood spider in his mouth and eyes. He rinsed his eyes out thoroughly. He reports that he is unsure when his last tetanus shot is and he has never been vaccinated for rabies. He denies any significant past medical history and is not taking any medications on a regular basis. - Related Data Home Medications Medication Instructions Recorded Confirmed ALPRAZolam [Xanax] 1 mg PO DIRECTED PRN 05/10/18 05/10/18 Dextroamphetamine/Amphetamine 10 mg PO DAILY 05/10/18 05/10/18 [Adderall] Previous Rx's Medication Instructions Recorded HYDROcodone/APAP 5-325MG [[place] 1 tab PO Q6HR PRN #10 tab 05/10/18 5-325] Ibuprofen [Motrin] 600 mg PO Q6HR PRN #20 tab 05/10/18 HYDROcodone/APAP 5-325MG [[place] 1 tab PO Q6HR PRN #12 tab 06/23/19 5-325] Ibuprofen [Motrin] 600 mg PO Q8HR PRN #24 tab 06/23/19 Ondansetron Odt [Zofran Odt] 4 mg PO Q8HR PRN #10 tab 06/23/19 Tamsulosin [Flomax] 0.4 mg PO DAILY #30 cap 06/23/19 HYDROcodone/APAP 5-325MG [[place] 1 tab PO Q6HR PRN #12 tab 01/22/22 5-325] Tamsulosin [Flomax] 0.4 mg PO DAILY #7 cap 01/22/22 Amoxicillin 875 mg PO Q12HR 5 Days #10 tablet 02/27/22 Allergies Allergy/AdvReac Type Severity Reaction Status Date / Time No Known Allergies Allergy Verified 02/27/22 20:05 Review of Systems ROS Statement: Those systems with pertinent positive or pertinent negative responses have been documented in the HPI. ROS Other: All systems not noted in ROS Statement are negative. Past Medical History Past Medical History: No Reported History Additional Past Medical History / Comment(s): kindey stones History of Any Multi-Drug Resistant Organisms: None Reported Past Surgical History: No Surgical Hx Reported Past Psychological History: No Psychological Hx Reported Smoking Status: Never smoker Past Alcohol Use History: None Reported Past Drug Use History: None Reported General Exam Limitations: no limitations General appearance: alert, in no apparent distress Head exam: Present: atraumatic, normocephalic, normal inspection Eye exam: Present: normal appearance, PERRL, EOMI. Absent: scleral icterus, conjunctival injection, periorbital swelling ENT exam: Present: normal exam, mucous membranes moist Neck exam: Present: normal inspection. Absent: lymphadenopathy Respiratory exam: Present: normal lung sounds bilaterally. Absent: respiratory distress, wheezes, rales, rhonchi, stridor Cardiovascular Exam: Present: regular rate, normal rhythm, normal heart sounds. Absent: systolic murmur, diastolic murmur, rubs, gallop, clicks Extremities exam: Absent: pedal edema, joint swelling Back exam: Present: normal inspection Neurological exam: Present: alert, oriented X3, CN II-XII intact Psychiatric exam: Present: normal affect, normal mood Skin exam: Present: warm, dry, other (Small puncture-like wound to bilateral biceps without significant skin interruption or surrounding erythema, no drainage or induration.) Course Vital Signs 02/27/22 20:01 Temperature 98.1 F Pulse Rate 72 Respiratory 18 Rate Blood Pressure 157/80 O2 Sat by Pulse 100 Oximetry Medical Decision Making - Medical Decision Making No indication for diagnostic imaging or laboratory studies. Discussed signs and symptoms of prophylactics treatment for both rabies and infection. Will start rabies vaccination process. Will give tetanus as tetanus last dose is unknown. Advised that may wait to start antibiotic prophylaxis in the setting of lack of tissue breakage however given blood in the eyes if any signs or symptoms of infection such as fevers or chills to start antibiotics immediately. Signs and symptoms warranting return to the emergency room reviewed. Will discharge patient home with further follow-up with his primary care provider along with glandular of his rabies vaccine series here at the hospital. Case discussed with Dr. Deluca. Disposition Clinical Impression: Rabies contact Disposition: HOME SELF-CARE Instructions (If sedation given, give patient instructions): Animal Bite (ED) Additional Instructions: Please complete your rabies vaccine series including a vaccine in 3 days, 7 days and 14 days for a total of 4 doses. Your you have received a tetanus next seen today in the vaccination is valid for the next 10 years. An antibiotic prescription has been sent to her pharmacy. Please take the prescription if any signs or symptoms of infection including fevers, chills redness or drainage from animal lesions. Please follow-up with your primary care provider. Please return to the Emergency Department if symptoms worsen or any other concerns. Prescriptions: Amoxicillin 875 mg PO Q12HR 5 Days #10 tablet Is patient prescribed a controlled substance at d/c from ED?: No Referrals: Parminder Shaw DO [Primary Care Provider] - 1-2 days Time of Disposition: 20:57
== END 2022-02-27 21:31 | disposition home or self-care (01) ==
LOC: EC 19:54
DX: Z20.3 Contact with and (suspected) exposure to rabies (principal); Z23 Encounter for immunization; W55.81XA Bitten by other mammals, initial encounter
CPT/HCPCS: 12002; 64450; 90471; 90472; 90675; 90715; 99283

== ENCOUNTER → 2022-10-19 | Outpatient (CLI) | payer BC ==
--- NOTE | 2022-10-19 07:42 | XR ---
EXAMINATION TYPE: XR KUB DATE OF EXAM: 10/19/2022 HISTORY: N20.0, right flank pain COMPARISON: CT abdomen and pelvis 01/22/2022, KUB radiograph 01/30/2022. TECHNIQUE: Upright KUB was performed with 2 radiographs. Findings: No definitive calculi identified over the expected location of both kidneys. Previously seen small ca lculus overlying the right transverse processes not visualized on today's exam. No pelvic calcificati ons identified. Bowel gas pattern is unremarkable. No free air. No mass effects. No acute osseous abnormality. IMPRESSION: No definitive renal or ureteral calculi identified. No pelvic calcifications. Previously demonstrated calcification at the right transverse process of L3 is no longer visualized. Consider further evalua tion with CT abdomen and pelvis as clinically indicated.
== END | disposition home or self-care (01) ==
LOC: RADXRMAIN 07:01
PROVIDERS: ATTEND Urology
DX: N20.0 Calculus of kidney (principal)
CPT/HCPCS: 74018

== ENCOUNTER → 2022-11-28 | Outpatient (CLI) | payer BC ==
--- NOTE | 2022-11-28 18:31 | CT ---
EXAMINATION TYPE: CT abdomen pelvis wo con CT DLP: 1081.90 mGycm, Automated exposure control for dose reduction was used. DATE OF EXAM: 11/28/2022 4:25 PM COMPARISON: CT abdomen pelvis most recent from 01/22/2022 CLINICAL INDICATION:Male, 32 years old with history of N20.0 CALCULUS OF KIDNEY; poss kidney stone TECHNIQUE: Axial CT of the abdomen and pelvis. Sagittal and coronal reformats were created on a [employer] workstation. Contrast used: None Oral contrast used: without Oral Contrast FINDINGS: LOWER CHEST: Unremarkable ABDOMEN LIVER: Unremarkable GALLBLADDER AND BILE DUCTS: Unremarkable. PANCREAS: Unremarkable. SPLEEN: Unremarkable. ADRENAL GLANDS: Unremarkable. KIDNEYS AND URETERS: Bilateral nonobstructing renal calculi measuring up to 5 mm on the left and 3 mm in the right. No evidence of obstructive uropathy. Previous proximal right ureter calculus has been removed and/or past. No obstructive uropathy. PELVIS BLADDER: Unremarkable REPRODUCTIVE: Unremarkable. ABDOMEN & PELVIS STOMACH AND BOWEL: No evidence of bowel obstruction. Few scattered colonic diverticula present. PERITONEUM/RETROPERITONEUM: No evidence of pneumoperitoneum or free fluid. VASCULATURE: No evidence of aortic aneurysm. MUSCULOSKELETAL: No acute osseous abnormalities LYMPH NODES: No gross evidence for lymphadenopathy. SOFT TISSUE/ABDOMINAL WALL: Fat-containing umbilical hernia. IMPRESSION: 1. Previous right ureter calculus is no longer visualized and suggested that was surgically removed or passed naturally. 2. Bilateral nonobstructing renal calculi. No evidence of obstructive uropathy. 3. Appendix is normal. 4. Colonic diverticulosis.
== END | disposition home or self-care (01) ==
LOC: RADCTMAIN 16:08
PROVIDERS: ATTEND Urology
DX: N20.0 Calculus of kidney (principal); K57.30 Diverticulosis of large intestine without perforation or abscess without bleeding
CPT/HCPCS: 74176

== ENCOUNTER → 2023-01-08 | Outpatient (CLI) | payer BC | END | disposition home or self-care (01) | LOC: LABPAT 15:41 | PROVIDERS: ATTEND Urology | DX: Z01.812 Encounter for preprocedural laboratory examination (principal); N20.0 Calculus of kidney; R31.29 Other microscopic hematuria ==

== ENCOUNTER 2023-01-15 05:37 | Day surgery (SDC) | payer BC ==
[2023-01-10 11:18] VITALS: BMI 30.8
[2023-01-15] MEDS ORDERED: LIDOCAINE 1% (10MG/ML) FOR IV START INTRADERMA PRN (06:33)
[2023-01-15] MEDS ORDERED: LACTATED RINGERS 1,000 ML IV SCH (06:33)
[2023-01-15] MEDS ORDERED: droPERidol 5 MG/2 ML VIAL IVP ONE (06:33)
[2023-01-15] MEDS ORDERED: DEXAMETHASONE SOD PHOSPHATE 4 MG/ML 1 ML VIAL IV ONE (06:33)
[2023-01-15] MEDS ORDERED: HYDROmorphone 0.5 MG/0.5 ML SYRINGE IVP PRN (07:00)
[2023-01-15] MEDS ORDERED: ONDANSETRON 4 MG/2 ML VIAL IVP PRN (07:00)
[2023-01-15] MEDS ORDERED: MIDAZOLAM 2 MG/2 ML VIAL IVP ONE ×3 (07:07→11:40)
--- NOTE | 2023-01-15 07:17 | XR ---
EXAMINATION TYPE: XR KUB DATE OF EXAM: 01/15/2023 Comparison: 10/19/2022 Clinical History: 32-year-old male N20.0 bilateral renal stone Findings: Moderate stool burden. Nonobstructive bowel gas pattern. No suspicious calcifications are clearly dep icted radiographically. Impression: Unable to clearly depict a suspicious calcification radiographically. Bowel content does largely obsc ure the renal shadows. Moderate stool burden.
[2023-01-15] MEDS ORDERED: MIDAZOLAM 2 MG/2 ML VIAL ONE (07:43)
[2023-01-15] MEDS ORDERED: LIDOCAINE 2% INJ 20 MG/ML (2 ML VIAL) ONE (07:43)
[2023-01-15] MEDS ORDERED: PROPOFOL 10 MG/ML 20 ML VIAL IV ONE (07:43)
[2023-01-15] MEDS ORDERED: fentaNYL (PF) 50 MCG/ML 2 ML AMP ONE ×2 (07:43→12:40)
[2023-01-15] MEDS ORDERED: ACETAMINOPHEN IV (For NPO) 1,000 MG/100 ML VIAL ONE (07:43)
[2023-01-15] MEDS ORDERED: HYDROmorphone (PF) 1 MG/ML ONE (07:43)
--- NOTE | 2023-01-15 07:44 | P.HPIHPCON ---
History of Present Illness H&P Date: 01/15/23 Chief Complaint: Bilateral renal stones This is a 32-year-old male with history of symptomatic bilateral flank pain. Underwent a CT abdomen and pelvis that showed evidence of bilateral renal stones. Discussed with him the stones are nonobstructive, but they could be contributing to his pain. Option of bilateral ureteroscopy with holmium laser was discussed. Discussed risk which includes but not limited to bleeding, infection, injury to the ureter. Risk of anesthesia was also discussed. He understood all the risk and agreed to proceed Consent for Procedure: I have explained the operation/procedure to the patient, including the risks, b enefits, side effects, alternative therapies (including not receiving the proposed treatment or service), the likelihood of the patient achieving his/her goals, and potential recuperation problems for the procedure/sedation/analgesia, as well as any blood products, if indicated. I also explained to the patient the risks, benefits and side effects of the alternatives, as well as the risks related to not receiving the proposed procedure, care, treatment, or services. Past Medical History Past Medical History: No Reported History Additional Past Medical History / Comment(s): kindey stones History of Any Multi-Drug Resistant Organisms: None Reported Past Surgical History: No Surgical Hx Reported Additional Past Surgical History / Comment(s): HX KIDNEY STONE PROCEDURES Past Anesthesia/Blood Transfusion Reactions: No Reported Reaction Smoking Status: Never smoker - Past Family History Mother Family Medical History: No Reported History Medications and Allergies Home Medications Medication Instructions Recorded Confirmed Type Testosterone Cypionate 200 mg IM Q14D 01/10/23 01/15/23 History [Depo-Testosterone] Allergies Allergy/AdvReac Type Severity Reaction Status Date / Time ibuprofen AdvReac Rash/Hives Verified 01/15/23 06:37 Surgical - Exam Vital Signs Temp Pulse Resp BP Pulse Ox 97.8 F 89 16 145/82 98 01/15/23 06:43 01/15/23 06:43 01/15/23 06:43 01/15/23 06:43 01/15/23 06:43 - General no distress, moderate pain - Eyes normal ocular movement, no pale - ENT normal nares, normal mucosa - Respiratory normal expansion, normal respiratory effort - Abdomen Abdomen: soft, non tender Assessment and Plan Assessment: OR for bilateral ureteroscopy, holmium laser lithotripsy, stone basketing and stent insertion
[2023-01-15] MEDS ORDERED: IOPAMIDOL-370 100ML BTL MISCELLANE ONE (08:25)
[2023-01-15] MEDS ORDERED: IOPAMIDOL-370 100ML BTL INTRATHECA ONE (08:25)
--- NOTE | 2023-01-15 09:13 | P.OP ---
Date of Procedure: 01/15/23 Preoperative Diagnosis: Bilateral renal stone Postoperative Diagnosis: Same Procedure(s) Performed: Cystoscopy, bilateral ureteroscopy, right ureteral balloon dilation, left holmium laser lithotripsy, stone basketing and bilateral stent insertion Implants: 6-[place] by 28 cm stent placed in the bilateral ureters Anesthesia: AL Surgeon: Conrad Rodriguez Estimated Blood Loss (ml): 5 Pathology: other (Left renal stones) Condition: stable Disposition: PACU Indications for Procedure: This is a 32-year-old male with history of symptomatic bilateral flank pain. Underwent a CT abdomen and pelvis that showed evidence of bilateral renal stones. Discussed with him the stones are nonobstructive, but they could be contributing to his pain. Option of bilateral ureteroscopy with holmium laser was discussed. Discussed risk which includes but not limited to bleeding, infection, injury to the ureter. Risk of anesthesia was also discussed. He understood all the risk and agreed to proceed Operative Findings: Multiple stones throughout the left kidney, right distal, and midureteral narrowing and tortuosity unable to pass the scope past the narrowing Description of Procedure: Patient brought to the operating room, general anesthesia was induced. He was prepped and draped in sterile fashion and placed in dorsal lithotomy position. Cystoscopy fitted with a 21-[place] sheath was inserted per urethra, cystoscopy was performed which showed no abnormality within the bladder. Attention was then carried to the right ureteral orifice which was intubated with a sensor wire. Next I attempted to pass a 1113 [place] access sheath but resistance was met at the distal ureter. At this time a 15-[place] balloon dilator was passed over the wire and the narrowing was dilated under fluoroscopy to 15-[place]. At this time I attempted to pass the access sheath over the wire I was able to pass it past the narrowing, but now resistance was met at the mid ureter. Additionally the mid ureter was quite torturous thus I was not able to pass the access sheath. At this time the access sheath was removed with wire in place and I attempted to pass the flexible ureteroscope over the wire, I again met resistance at the mid ureter at the point of narrowing and tortuosity. Given this finding decision was made to proceed with the stent. The stent was passed over the wire, the proximal curl was visualized on fluoroscopy and the distal curl was visualized using cystoscope. This time attention was carried to the left ureteral orifice which was intubated with a sensor wire. Next a 1113 [place] access sheath was passed over the wire and into the proximal ureter. Next a flexible ureteroscope was inserted through the access sheath, renoscopy was performed showed multiple stones throughout the kidney. Using the holmium laser the stones were dusted, sizable fragments were removed using the stone basket. Repeat renoscopy showed no sizable stones or injury to the kidney. Pullback ureteroscopy was performed showed no injury to the ureter or any ureteral stones, as ureteroscope was withdrawn and a sensor wire was advanced through. Next a ureteral stent was passed over the wire, the proximal curl was visualized on fluoroscopy and the distal curl was visualized using the cystoscope. The bladder was emptied at the end of the case. Patient tolerated the procedure well was taken to recovery in stable condition
[2023-01-15] MEDS ORDERED: HYDROmorphone 0.5 MG/0.5 ML SYRINGE IVP ONE ×2 (10:00→10:28)
[2023-01-15] MEDS ORDERED: MEPERIDINE 50 MG/ML SYRINGE IVP ONE ×2 (10:05→10:17)
[2023-01-15] MEDS ORDERED: ONDANSETRON 4 MG/2 ML VIAL ONE (10:22)
[2023-01-15] MEDS ORDERED: ONDANSETRON 4 MG/2 ML VIAL IVP ONE (10:28)
[2023-01-15] MEDS ORDERED: PHENAZOPYRIDINE 100 MG TAB PO STA (10:43)
[2023-01-15] MEDS ORDERED: LIDOCAINE 2% URO-JET JELLY 5 ML KIT URETHRAL ONE (10:44)
[2023-01-15] MEDS ORDERED: HYDROcodone/APAP 5-325MG 1 EACH TAB ONE (10:46)
[2023-01-15] MEDS ORDERED: HYDROcodone/APAP 5-325MG 1 EACH TAB PO ONE (10:51)
[2023-01-15] MEDS ORDERED: oxyBUTYnin chloride 5 MG TAB PO STA (11:39)
[2023-01-15] MEDS ORDERED: HYDROCORTISONE SUCCINATE 100 MG/2 ML VIAL IVP ONE (11:43)
[2023-01-15] MEDS ORDERED: ACETAMINOPHEN IV (For NPO) 1,000 MG/100 ML VIAL IVPB ONE (11:44)
--- NOTE | 2023-01-15 11:49 | FL ---
EXAMINATION TYPE: FL guidance operating room DATE OF EXAM: 01/15/2023 HISTORY: Fluoroscopy time Total dose area product (DAP) in uGy*m?, mGy*cm? (or similar): 1.94 IMPRESSION: 1. Fluoroscopy time.
[2023-01-15 12:23] VITALS: RESP 16
[2023-01-15] MEDS ORDERED: fentaNYL (PF) 50 MCG/ML 2 ML AMP IVP ONE (12:46)
[2023-01-15] MEDS ORDERED: HYOSCYAMINE SULFATE 0.125 MG TAB PO PRN ×2 (12:50→12:59)
[2023-01-15] MEDS ORDERED: HYDROmorphone 1 MG/ML 1 ML SYRINGE IVP PRN (12:55)
[2023-01-15] MEDS ORDERED: HYDROcodone/APAP 5-325MG 1 EACH TAB PO PRN (12:55)
[2023-01-15] MEDS ORDERED: diazePAM 2 MG TAB PO PRN (13:01)
[2023-01-15] MEDS ORDERED: PHENAZOPYRIDINE 200 MG TAB PO SCH (16:00)
[2023-01-15] MEDS ORDERED: TAMSULOSIN 0.4 MG CAP.ER.24H PO SCH (16:00)
[2023-01-15 17:14] VITALS: BP 155/80; PULSE 107; TEMP 98.9
[2023-01-15] MEDS ORDERED: HEPARIN SODIUM,PORCINE/PF 5,000 UNIT/0.5 ML SYRINGE SQ SCH (21:00)
[2023-01-16] MEDS ORDERED: OXYBUTYNIN XL 5 MG TAB.ER.24 PO SCH (09:00)
== END 2023-01-15 18:33 | disposition home or self-care (01) ==
LOC: OR 05:37 → 6NMEDSUR 09:15 → OR 18:33
PROVIDERS: ATTEND Urology
DX: N20.0 Calculus of kidney (principal); N13.5 Crossing vessel and stricture of ureter without hydronephrosis; Z79.890 Hormone replacement therapy; Z98.890 Other specified postprocedural states
CPT/HCPCS: 52356; 82365; 74018; J2250; J1100; J1720; J2175; J0690; J2405; J3010; J0131; J3360; J1170; Q9967

== ENCOUNTER → 2023-01-24 | Outpatient (CLI) | payer BC ==
[2023-01-25 02:46] LABS: Appearance,Urine Clear (Clear); Bilirubin,Urine Negative (Negative); Blood,Urine Large (Negative); Color,Urine Orange (Yellow); Ketones,Urine Negative (Negative); Nitrite,Urine Negative (Negative); PH, Urine 6.5; Specific Gravity,Urine 1.012 (1.001-1.030); Urobilinogen,Urine 0.2 E.U./DL
[2023-01-25 02:58] LABS: Bacteria,Urine None Seen (None Seen)
== END | disposition home or self-care (01) ==
LOC: LABPAT 08:25
PROVIDERS: ATTEND Urology
DX: Z01.812 Encounter for preprocedural laboratory examination (principal); N20.0 Calculus of kidney; R31.29 Other microscopic hematuria
CPT/HCPCS: 81001; 87086

== ENCOUNTER 2023-01-29 10:57 | Day surgery (SDC) | payer BC ==
[~2023-01-29 10:57] MED LIST: DEXAMETHASONE SOD PHOSPHATE 4 MG/ML 1 ML VIAL IV ONE; LACTATED RINGERS 1,000 ML IV SCH; LIDOCAINE 1% (10MG/ML) FOR IV START INTRADERMA PRN; MIDAZOLAM 2 MG/2 ML VIAL IV PRN; ONDANSETRON 4 MG/2 ML VIAL IVP ONE
--- NOTE | 2023-01-29 12:02 | XR ---
EXAMINATION TYPE: XR KUB DATE OF EXAM: 01/29/2023 11:17 AM INDICATION: Patient age:Male; 33 years old; Reason for study: kidney stones; [facility]. COMPARISON: None. TECHNIQUE: One radiographic view of the abdomen was obtained. FINDINGS: The right ureteral stent is in appropriate position. Left ureteral stent now appears to be entirely within the bladder. The bowel gas pattern is nonspecific without dilated loops of small or l arge bowel. There is no evidence for organomegaly or pneumoperitoneum. The osseous structures are in tact. No abnormal calcifications are present. Fecal material and gas are demonstrated throughout the colon and rectum. IMPRESSION: 1. Migration of left ureteral stent with both ends of the pigtail catheter within the urinary bladde r. 2. Right renal stent with proximal and distal portion appropriate position.
[2023-01-29] MEDS ORDERED: SCOPOLAMINE 1 MG/72 HR PATCH TRANSDERM ONE (12:27)
[2023-01-29] MEDS ORDERED: fentaNYL (PF) 50 MCG/ML 2 ML AMP ONE (13:20)
[2023-01-29] MEDS ORDERED: NEOSTIGMINE 1 MG/ML 10 ML VIAL ONE (13:20)
[2023-01-29] MEDS ORDERED: MIDAZOLAM 2 MG/2 ML VIAL ONE (13:20)
[2023-01-29] MEDS ORDERED: GLYCOPYRROLATE 0.2 MG/ML 2 ML VIAL ONE (13:20)
[2023-01-29] MEDS ORDERED: LIDOCAINE 2% INJ 20 MG/ML (2 ML VIAL) ONE (13:20)
[2023-01-29] MEDS ORDERED: SUCCINYLCHOLINE CHLORIDE 200 MG/10 ML VIAL IV ONE (13:20)
[2023-01-29] MEDS ORDERED: PROPOFOL 10 MG/ML 20 ML VIAL IV ONE (13:20)
[2023-01-29] MEDS ORDERED: ROCURONIUM 10 MG/ML (5 ML VIAL) IV ONE (13:20)
[2023-01-29] MEDS ORDERED: diazePAM 2 MG TAB PO STA (13:52)
--- NOTE | 2023-01-29 14:23 | FL ---
Intraoperative/procedural fluoroscopic services were provided. Total fluoroscopy time is 14.0 seconds with a total of 1 submitted images to PACS. Please see the operative/procedural note for further det ails. DAP: [id number] mGym2
[2023-01-29 14:26] VITALS: TEMP 97
--- NOTE | 2023-01-29 14:29 | P.HPIHPCON ---
History of Present Illness H&P Date: 01/29/23 Chief Complaint: Bilateral renal stones This is a 33-year-old male with history of recurrent kidney stones. Underwent left-sided ureteroscopy with holmium laser, and attempted right-sided ureteroscopy with holmium laser but I was not able right-sided stone secondary to ureteral narrowing and subsequently underwent stent insertion on that side. He presents today for right-sided ureteroscopy with holmium laser and left stent removal. Aware of the risk which includes but not limited to bleeding, infection, injury to ureter. Risk of anesthesia was also discussed with him. He understood all the risk and agreed to proceed Consent for Procedure: I have explained the operation/procedure to the patient, including the risks, benefits, side effects, alternative therapies (including not receiving the proposed treatment or service), the likelihood of the patient achieving his/her goals, and potential recuperation problems for the procedure/sedation/analgesia, as well as any blood products, if indicated. I also explained to the patient the risks, benefits and side effects of the alternatives, as well as the risks related to not receiving the proposed procedure, care, treatment, or services. Past Medical History Past Medical History: No Reported History Additional Past Medical History / Comment(s): kidney stones, still blood in urine History of Any Multi-Drug Resistant Organisms: None Reported Past Surgical History: No Surgical Hx Reported Additional Past Surgical History / Comment(s): lithotripsy/cystoscopy w/sagrario. ureteral stents 01-15-23 Past Anesthesia/Blood Transfusion Reactions: No Reported Reaction Additional Past Anesthesia/Blood Transfusion Reaction / Comment(s): elevated pulse after lithotripsy recently per pt. Smoking Status: Unknown if ever smoked Medications and Allergies Home Medications Medication Instructions Recorded Confirmed Type Testosterone Cypionate 200 mg IM Q14D 01/10/23 01/29/23 History [Depo-Testosterone] Tamsulosin [Flomax] 0.4 mg PO DAILY #30 cap 01/15/23 01/29/23 Rx Allergies Allergy/AdvReac Type Severity Reaction Status Date / Time ibuprofen AdvReac Rash/Hives Verified 01/29/23 12:16 Assessment and Plan Assessment: OR for cystoscopy, bilateral stent removal, right ureteroscopy and holmium laser stone basketing
--- NOTE | 2023-01-29 14:36 | P.OP ---
Date of Procedure: 01/29/23 Preoperative Diagnosis: Right renal stone Postoperative Diagnosis: Same Procedure(s) Performed: Cystoscopy, right ureteroscopy, holmium laser lithotripsy, stone basketing and bilateral stent removal Implants: None Anesthesia: AL Surgeon: Conrad Rodriguez Estimated Blood Loss (ml): 5 Pathology: other (Right renal stones) Condition: stable Disposition: PACU Indications for Procedure: This is a 33-year-old male with history of recurrent kidney stones. Underwent left-sided ureteroscopy with holmium laser, and attempted right-sided ureteroscopy with holmium laser but I was not able right-sided stone secondary to ureteral narrowing and subsequently underwent stent insertion on that side. He presents today for right-sided ureteroscopy with holmium laser and left stent removal. Aware of the risk which includes but not limited to bleeding, infection, injury to ureter. Risk of anesthesia was also discussed with him. He understood all the risk and agreed to proceed Operative Findings: Multiple stones throughout the right kidney Description of Procedure: Patient brought to the operating room, general anesthesia was induced. He was prepped and draped in sterile fashion and placed in dorsal lithotomy position. Cystoscopy fitted with a 21-Yi sheath was inserted per urethra, cystoscopy was performed which showed no abnormality in the bladder. Next using a stent grasper the stent was removed, of note the stent was within the bladder. At this time attention was carried to the right side, the stent was grasped and removed to the meatus. Next a sensor wire was advanced through the stent the stent was removed with the wire in place. Next under fluoroscopy 1113 Yi access sheath was passed over the wire into the proximal ureter. Next a flexible ureteroscope was inserted through the access sheath, renoscopy was performed which showed multiple stones throughout the kidney, using the holmium laser the stones were fragmented, sizable fragments were removed using the stone basket and sent for analysis. Repeat renoscopy showed no sizable stones or injury to the kidney. Pullback ureteroscopy was performed which showed no injury to the ureter or any ureteral stones, there was no ureteral edema thus stent was not placed. The bladder was emptied at the end of the case. Patient tolerated procedure well taken to recovery in stable condition
[2023-01-29 14:38] VITALS: RESP 16
[2023-01-29] MEDS: HYDROmorphone 0.5 MG/0.5 ML SYRINGE IVP PRN ×2 (14:43→14:52)
[2023-01-29] MEDS: fentaNYL (PF) 50 MCG/ML 2 ML AMP IVP ONE ×2 (15:03→15:12)
[2023-01-29] MEDS ORDERED: SODIUM CHLORIDE 0.9% 1,000 ML IV ONE ×2 (15:08)
[2023-01-29] MEDS ORDERED: traMADol 50 MG TAB ONE (16:43)
[2023-01-29] MEDS ORDERED: traMADol 50 MG TAB PO ONE (16:45)
[2023-01-29 16:51] VITALS: BP 138/87; PULSE 101
== END 2023-01-29 17:16 | disposition home or self-care (01) ==
LOC: OR 10:57
PROVIDERS: ATTEND Urology
DX: N20.0 Calculus of kidney (principal); Z79.899 Other long term (current) drug therapy
CPT/HCPCS: 82365; 74018; 52353; C1769; J2250; J0330; J1100; J2710; J0690; J2405; J3010; J2704; J1170; J2001

== ENCOUNTER 2024-07-25 00:08 | Emergency (ER) | payer BC ==
[2024-07-25 00:22] VITALS: RESP 18; TEMP 97.8
--- NOTE | 2024-07-25 00:38 | ED ---
General Adult HPI - General Chief complaint: Chest Pain Stated complaint: Chest Pain, Afib Time Seen by Provider: 07/25/24 00:30 Source: patient, RN notes reviewed Mode of arrival: ambulatory Limitations: no limitations - History of Present Illness Initial comments: This is a 34-year-old male with history of hypertension, not on medication, presenting to the emergency department for chief complaint of a fluttering in his chest and chest tightness that occurred approximately 2 hours prior to arrival. He denies overt chest pain, states that it feels like a fluttering type sensation in his mid chest that does not radiate. Denies associated diaphoresis and nausea. States that the feeling lasted for approximately an hour and went away for 10 to 15 minutes and came back. Patient states that since he has been in the emergency department he has not experienced this sensation. He denies shortness of breath, difficulty breathing, nausea, abdominal pain. He denies history of DVT/PE, recent prolonged travel, recent surgeries, history of blood clotting disorders. - Related Data Home Medications Medication Instructions Recorded Confirmed Testosterone Cypionate 200 mg IM Q14D 01/10/23 01/29/23 [Depo-Testosterone] Previous Rx's Medication Instructions Recorded Tamsulosin [Flomax] 0.4 mg PO DAILY #30 cap 01/15/23 Cephalexin [Keflex] 500 mg PO Q6HR 1 Days #4 cap 01/29/23 traMADol HCl [Ultram] 50 mg PO Q6HR PRN 3 Days #8 tab 01/29/23 Allergies Allergy/AdvReac Type Severity Reaction Status Date / Time ibuprofen AdvReac Rash/Hives Verified 07/25/24 00:23 Review of Systems ROS Statement: Those systems with pertinent positive or pertinent negative responses have been documented in the HPI. ROS Other: All systems not noted in ROS Statement are negative. Past Medical History Past Medical History: No Reported History Additional Past Medical History / Comment(s): kindey stones History of Any Multi-Drug Resistant Organisms: None Reported Past Surgical History: No Surgical Hx Reported Past Psychological History: No Psychological Hx Reported Smoking Status: Unknown if ever smoked General Exam Limitations: no limitations General appearance: alert, in no apparent distress ENT exam: Present: normal exam, mucous membranes moist Neck exam: Present: normal inspection. Absent: tenderness, meningismus, lymphadenopathy Respiratory exam: Present: normal lung sounds bilaterally. Absent: respiratory distress, wheezes, rales, rhonchi, stridor Cardiovascular Exam: Present: regular rate, normal rhythm, normal heart sounds. Absent: systolic murmur, diastolic murmur, rubs, gallop, clicks GI/Abdominal exam: Present: soft, normal bowel sounds. Absent: distended, tenderness, guarding, rebound, rigid Extremities exam: Present: normal inspection, full ROM, normal capillary refill. Absent: tenderness, pedal edema, joint swelling, calf tenderness Skin exam: Present: warm, dry, intact, normal color. Absent: rash Course Vital Signs 07/25/24 07/25/24 00:18 01:07 Temperature 97.8 F Pulse Rate 102 H 89 Respiratory 18 18 Rate Blood Pressure 142/93 131/86 O2 Sat by Pulse 97 97 Oximetry Medical Decision Making - Medical Decision Making Was pt. sent in by a medical professional or institution (, PA, PROSTHETIC AIDE, urgent care, hospital, or long-term...) When possible be specific @ -No Did you speak to anyone other than the patient for history (EMS, parent, family, police, friend...)? What history was obtained from this source @ -No Did you review nursing and triage notes (agree or disagree)? Why? @ -I reviewed and agree with nursing and triage notes Were old charts reviewed (outside hosp., previous admission, EMS record, old EKG, old radiological studies, urgent care reports/EKG's, long-term records)? Report findings @ -No old charts were reviewed Differential Diagnosis (chest pain, altered mental status, abdominal pain women, abdominal pain men, vaginal bleeding, weakness, fever, dyspnea, syncope, headache, dizziness, GI bleed, back pain, seizure, CVA, palpatations, mental health, musculoskeletal)? @ -Differential Palpitations Ventricular arrhythmias, atrial arrhythmias, myocardial infarction, anemia, t hyrotoxicosis, electrolyte imbalance, hypokalemia, pulmonary embolism, pulmonary disease, drugs, alcohol, anxiety, stress.... This is not meant to be an all-inclusive list. EKG interpreted by me (3pts min.). @ -Completed at 0046 sinus rhythm with a ventricular rate of 86, MA interval 170, QRS 98, QTc 384. X-rays interpreted by me (1pt min.). @ -None done CT interpreted by me (1pt min.). @ -None done U/S interpreted by me (1pt. min.). @ -None done What testing was considered but not performed or refused? (CT, X-rays, U/S, labs)? Why? @ -None What meds were considered but not given or refused? Why? @ -None Did you discuss the management of the patient with other professionals (professionals i.e. Dr., PA, PROSTHETIC AIDE, lab, RT, psych nurse, social worker school, tap out operator, teacher, labor relations officer, window caser)? Give summary @ -No Was smoking cessation discussed for >3mins.? @ -No Was critical care preformed (if so, how long)? @ -No Were there social determinants of health that impacted care today? How? (Ho melessness, low income, unemployed, alcoholism, drug addiction, transportation, low edu. Level, literacy, decrease access to med. care, senior living, rehab)? @ -No Was there de-escalation of care discussed even if they declined (Discuss DNR or withdrawal of care, Hospice)? DNR status @ -No What co-morbidities impacted this encounter? (DM, HTN, Smoking, COPD, CAD, Cancer, CVA, ARF, Chemo, Hep., AIDS, mental health diagnosis, sleep apnea, morbid obesity)? @ -None Was patient admitted / discharged? Hospital course, mention meds given and route, prescriptions, significant lab abnormalities, going to OR and other pertinent info. @ -Discharge. 34-year-old male presenting with heart palpitations. Patient is noted to be in sinus rhythm on arrival. He will undergo cardiac evaluation. Labs remarkable for leukocytosis of 13.4 neutrophils 10.7 likely secondary to current corticosteroid use. Troponin nonelevated, coagulation profile within normal limits. On evaluation the patient's room states that he is experiencing a flare sensation and returned secured entrance monitor reveals PVC. additionally, states he has been using [id number] decongestions and states that this may be exacerbating his symptoms. Patient has a low heart score and therefore admission is not necessary at this time, patient is appropriate to follow-up outpatient. Patient is educated on today's findings and recommended to follow- up with primary care provider for further evaluation. Discussed with Dr. Ocasio Undiagnosed new problem with uncertain prognosis? @ -No Drug Therapy requiring intensive monitoring for toxicity (Heparin, Nitro, Insulin, Cardizem)? @ -No Were any procedures done? @ -No Diagnosis/symptom? @ -heart palpitations, PVCs Acute, or Chronic, or Acute on Chronic? @ -acute Uncomplicated (without systemic symptoms) or Complicated (systemic symptoms)? @ -uncomplicated Side effects of treatment? @ -No Exacerbation, Progression, or Severe Exacerbation? @ -No Poses a threat to life or bodily function? How? (Chest pain, USA, IA, pneumonia, PE, COPD, DKA, ARF, appy, cholecystitis, CVA, Diverticulitis, Homicidal, Suicidal, threat to staff... and all critical care pts) @ -No - Lab Data Result diagrams: 07/25/24 00:38 07/25/24 00:38 Lab Results 07/25/24 07/25/24 07/25/24 Range/Units 00:38 00:38 00:38 WBC 13.4 H (3.8-10.6) k/uL RBC 5.38 (4.30-5.90) m/uL Hgb 16.0 (13.0-17.5) gm/dL Hct 49.6 (39.0-53.0) % MCV 92.1 (80.0-100.0) fL MCH 29.8 (25.0-35.0) pg MCHC 32.3 (31.0-37.0) g/dL RDW 12.8 (11.5-15.5) % Plt Count 287 (150-450) k/uL MPV 7.7 Neutrophils % 80 % Lymphocytes % 11 % Monocytes % 6 % Eosinophils % 0 % Basophils % 0 % Neutrophils # 10.7 H (1.3-7.7) k/uL Lymphocytes # 1.5 (1.0-4.8) k/uL Monocytes # 0.9 (0-1.0) k/uL Eosinophils # 0.0 (0-0.7) k/uL Basophils # 0.0 (0-0.2) k/uL PT 10.9 (10.0-12.5) sec INR 1.0 (<1.2) APTT 24.0 (22.0-30.0) sec Sodium 138 (137-145) mmol/L Potassium 3.9 (3.5-5.1) mmol/L Chloride 108 H (98-107) mmol/L Carbon Dioxide 24 (22-30) mmol/L Anion Gap 6 mmol/L BUN 15 (9-20) mg/dL Creatinine 0.83 (0.66-1.25) mg/dL Est GFR (CKD-EPI)AfAm >90 (>60 ml/min/1.73 sqM) Est GFR (CKD-EPI)NonAf >90 (>60 ml/min/1.73 sqM) Glucose 149 H (74-99) mg/dL Calcium 9.7 (8.4-10.2) mg/dL Magnesium 2.1 (1.6-2.3) mg/dL Total Bilirubin 0.4 (0.2-1.3) mg/dL AST 20 (17-59) U/L ALT 30 (4-49) U/L Alkaline Phosphatase 69 (38-126) U/L Troponin I (0.000-0.034) ng/mL Total Protein 7.6 (6.3-8.2) g/dL Albumin 4.7 (3.5-5.0) g/dL Lipase 107 (23-300) U/L 07/25/24 Range/Units 00:38 WBC (3.8-10.6) k/uL RBC (4.30-5.90) m/uL Hgb (13.0-17.5) gm/dL Hct (39.0-53.0) % MCV (80.0-100.0) fL MCH (25.0-35.0) pg MCHC (31.0-37.0) g/dL RDW (11.5-15.5) % Plt Count (150-450) k/uL MPV Neutrophils % % Lymphocytes % % Monocytes % % Eosinophils % % Basophils % % Neutrophils # (1.3-7.7) k/uL Lymphocytes # (1.0-4.8) k/uL Monocytes # (0-1.0) k/uL Eosinophils # (0-0.7) k/uL Basophils # (0-0.2) k/uL PT (10.0-12.5) sec INR (<1.2) APTT (22.0-30.0) sec Sodium (137-145) mmol/L Potassium (3.5-5.1) mmol/L Chloride (98-107) mmol/L Carbon Dioxide (22-30) mmol/L Anion Gap mmol/L BUN (9-20) mg/dL Creatinine (0.66-1.25) mg/dL Est GFR (CKD-EPI)AfAm (>60 ml/min/1.73 sqM) Est GFR (CKD-EPI)NonAf (>60 ml/min/1.73 sqM) Glucose (74-99) mg/dL Calcium (8.4-10.2) mg/dL Magnesium (1.6-2.3) mg/dL Total Bilirubin (0.2-1.3) mg/dL AST (17-59) U/L ALT (4-49) U/L Alkaline Phosphatase (38-126) U/L Troponin I <0.012 (0.000-0.034) ng/mL Total Protein (6.3-8.2) g/dL Albumin (3.5-5.0) g/dL Lipase (23-300) U/L Disposition Clinical Impression: Premature ventricular contraction Disposition: HOME SELF-CARE Condition: Good Instructions (If sedation given, give patient instructions): Premature Ventric ular Contractions (ED) Additional Instructions: Please return to the Emergency Department if symptoms worsen or any other concerns. Is patient prescribed a controlled substance at d/c from ED?: No Referrals: Parminder Shaw DO [Primary Care Provider] - 1-2 days Time of Disposition: 01:41
[2024-07-25 01:11] LABS: Basophils % (A) 0 %; Eosinophils % (A) 0 %; HCT 49.6 % (39.0-53.0); Lymphocytes # (A) 1.5 k/uL (1.0-4.8); Lymphocytes % (A) 11 %; MCH 29.8 pg (25.0-35.0); MCHC 32.3 g/dL (31.0-37.0); MCV 92.1 fL (80.0-100.0); Mean Platelet Volume 7.7; Monocytes # (A) 0.9 k/uL (0-1.0); Monocytes % (A) 6 %; Neutrophils # (A) 10.7 k/uL (1.3-7.7); Neutrophils % (A) 80 %; Platelet Count 287 k/uL (150-450); RBC 5.38 m/uL (4.30-5.90); RDW 12.8 % (11.5-15.5); WBC 13.4 k/uL (3.8-10.6)
[2024-07-25 01:15] LABS: Prothrombin Time 10.9 sec (10.0-12.5)
[2024-07-25 01:18] LABS: ALT 30 U/L (4-49); AST 20 U/L (17-59); African American GFR (CKD) >90 (>60 ml/min/1.73 sqM); Albumin 4.7 g/dL (3.5-5.0); Alkaline Phosphatase 69 U/L (38-126); Anion Gap 6 mmol/L; Blood Urea Nitrogen 15 mg/dL (9-20); Calcium 9.7 mg/dL (8.4-10.2); Carbon Dioxide 24 mmol/L (22-30); Chloride 108 mmol/L (98-107); Glucose 149 mg/dL (74-99); Lipase 107 U/L (23-300); Magnesium 2.1 mg/dL (1.6-2.3); Non-African American GFR(CKD) >90 (>60 ml/min/1.73 sqM); Potassium 3.9 mmol/L (3.5-5.1); Sodium 138 mmol/L (137-145); Total Bilirubin 0.4 mg/dL (0.2-1.3); Total Protein 7.6 g/dL (6.3-8.2)
[2024-07-25 02:03] VITALS: BP 129/91; PULSE 84
== END 2024-07-25 02:03 | disposition home or self-care (01) ==
LOC: EC 00:08
DX: I49.3 Ventricular premature depolarization (principal); D72.829 Elevated white blood cell count, unspecified; Z88.6 Allergy status to analgesic agent
CPT/HCPCS: 36415; 80053; 83690; 83735; 84484; 85025; 85610; 85730; 93005; 99285